=== PATIENT | male | born 1995 | race American Indian/Alaskan Native ===

== ENCOUNTER 2022-05-07 18:38 | Emergency (ER) | payer SELFPAY ==
[2022-05-07 18:41] VITALS: BP 140/80
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
== END 2022-05-08 01:20 | disposition home or self-care (01) ==
LOC: ED 18:38
DX: S01.01XA Laceration without foreign body of scalp, initial encounter (principal); W25.XXXA Contact with sharp glass, initial encounter; Y93.89 Activity, other specified; Y92.89 Other specified places as the place of occurrence of the external cause; Y99.8 Other external cause status
CPT/HCPCS: 99283